=== PATIENT | male | born 1955 | race Caucasian/White ===

== ENCOUNTER 2019-04-06 09:37 | Day surgery (SDC) | payer BC ==
[2019-04-06] VITALS (9 sets, daily range): BP systolic 112–126; BP diastolic 68–82
[~2019-04-06] VITALS: Ht 162.6 cm; Wt 65.8 kg
[~2019-04-06 09:37] MED LIST: FISH OIL + D31 EACH PO; FOLIC ACID1 MG ORAL; LR 1000ml 1,000 ML IVLG SCH; MULTIVITAMINS1 EAC2 ORAL; PURINETHOL50 MG ORAL; TRICOR54 MG ORAL; vit b complex PO; vit d PO; zinc PO
[2019-04-06] MEDS ORDERED: INDAPAMIDE1.25 MG PO (10:19)
[2019-04-06] MEDS ORDERED: ASPIR 8181 MG ORAL (10:19)
[2019-04-06] MEDS ORDERED: MERCAPTOPURINE50 MG PO (10:19)
[2019-04-06] MEDS ORDERED: LIPITOR40 MG ORAL (10:20)
[2019-04-06] MEDS ORDERED: LR 1000ml 1,000 ML IVLG SCH (10:58)
[2019-04-06] MEDS ORDERED: Atropine Sulfate 0.4mg/ml inj IVP PRN (11:00)
[2019-04-06] MEDS ORDERED: Ketorolac 30mg Inj IV PRN ×2 (11:00)
[2019-04-06] MEDS ORDERED: DiphenhydrAMINE 50mg/ml Inj IVP PRN (11:00)
[2019-04-06] MEDS ORDERED: Metoclopramide 10mg/2ml Inj IVP PRN (11:00)
[2019-04-06] MEDS ORDERED: Meperidine 25mg/0.5ml Inj (FOR RIGORS ONLY) IV PRN (11:00)
[2019-04-06] MEDS ORDERED: Labetalol 5mg/ml 20ml vial IV PRN (11:00)
[2019-04-06] MEDS ORDERED: Midazolam 2mg/2ml Inj IVP PRN (11:00)
[2019-04-06] MEDS ORDERED: LORazepam Inj 2mg/ml 1ml IV PRN (11:00)
[2019-04-06] MEDS ORDERED: fentaNYL 100 mcg/2 mL IV PRN (11:00)
--- NOTE | 2019-04-06 11:00 | Anethesia Preoperative Eval ---
Anesthesia Pre-op PMH/ROS General Date of Evaluation: Apr 06, 2019 Time of Evaluation: 11:20 Anesthesiologist: Sher ASA Score: ASA 3 Mallampati Score Class I : Soft palate, uvula, fauces, pillars visible Class II: Soft palate, uvula, fauces visible Class III: Soft palate, base of uvula visible Class IV: Only hard plate visible Mallampati Classification: Class II Surgeon: Vincenzo Diagnosis: Abd Pain Surgical Procedure: Colonoscopy Family History: no anesthesia problems Allergies: Coded Allergies: CODEINE (Unverified Adverse Reaction, Severe, severe nausea, 04/06/19) Medications: see eMAR Patient NPO?: Yes Past Medical History Cardiovascular: Reports: HTN, other - HL Gastrointestinal/Genitourinary: Reports: GERD, other - Crohns, BPH Musculoskeletal/Integumentary: Reports: OA PSxH Narrative: [facility] Anesthesia Pre-op Phys. Exam Physician Exam Last Vital Signs Date Time Temp Pulse Resp B/P (MAP) Pulse Ox O2 Delivery O2 Flow Rate FiO2 04/06/19 10:21 Room Air 04/06/19 10:10 97.3 61 18 120/78 98 Constitutional: NAD Neurologic: CN 2-12 intact Cardiovascular: RRR Respiratory: CTA Gastrointestinal: S/NT/ND Airway Exam Mallampati Score: Class II MO: full ROM: limited Teeth: missing, intact Anesthesia Pre-op A/P Risk Assessment & Plan Assessment: ASA 3 Plan: GA Status Change Before Surgery: Lucas Vines MD Apr 06, 2019 11:00
--- NOTE | 2019-04-06 11:24 | Short Stay Surgery H&P ---
History of Present Illness History of Present Illness Chief Complaint see H&P attached HPI Melissa Tobias is a 63 year old male who was admitted on for Crohns Patient History Allergies: Coded Allergies: CODEINE (Unverified Adverse Reaction, Severe, severe nausea, 04/06/19) Relevant Family History: IBD Medication History Scheduled Aspirin* (Aspir 81*), 81 MG ORAL DAILY, (Reported) Atorvastatin Calcium* (Lipitor*), 40 MG ORAL BEDTIME, (Reported) Fenofibrate (Fenofibrate), 48 MG ORAL DAILY, (Reported) Indapamide (Indapamide), 1.25 MG PO DAILY, (Reported) Mercaptopurine (Mercaptopurine), 50 MG PO DAILY, (Reported) Discontinued Medications Folic Acid* (Folic Acid*), 1 MG ORAL DAILY, (Reported) Discontinued Reason: Pt stopped taking med Multivitamins* (Multivitamins*), 1 TAB ORAL DAILY, (Reported) Discontinued Reason: Pt stopped taking med [place]-3S/Dha/Epa/Fish Oil/D3 (Fish Oil + D3 Softgel), 1 EACH PO DAILY, (Reported ) Discontinued Reason: Pt stopped taking med [vit b complex], 1 TAB-CAP PO DAILY, (Reported) Discontinued Reason: Pt stopped taking med [vit d], 2,000 PO DAILY, (Reported) Discontinued Reason: Pt stopped taking med [zinc], 1 TAB PO DAILY, (Reported) Discontinued Reason: Pt stopped taking med Physical Exam Vital Signs Last Vital Signs Date Time Temp Pulse Resp B/P (MAP) Pulse Ox O2 Delivery O2 Flow Rate FiO2 04/06/19 10:21 Room Air 04/06/19 10:10 97.3 61 18 120/78 98 Plan Attestation Are the patient's medical conditions optimized for surgery? Kathleen Loya MD Apr 06, 2019 11:24
--- NOTE | 2019-04-06 11:25 | Pre-Procedure Note/Attestation ---
Pre-Procedure Note/Attestation Complete Prior to Procedure Planned Procedure: not applicable Procedure Narrative: colon Indications for Procedure Pre-Operative Diagnosis: Crohns Attestation I attest that I discussed the nature of the procedure; its benefits; risks and complications; and alternatives (and the risks and benefits of such alternatives ), prior to the procedure, with the patient (or the patient's legal sales development representative). I attest that, if there was a reasonable possibility of needing a blood transfusion, the patient (or the patient's legal sales development representative) was given the [facility] standardized written summary, pursuant to the [place] Blood Safety Act ([place] Health and Safety Code # 1645, as amended). I attest that I re-evaluated the patient just prior to the surgery and that there has been no change in the patient's H&P, except as documented below: Kathleen Loya MD Apr 06, 2019 11:25
[2019-04-06] MEDS ORDERED: LR 1000ml ONE (11:30)
[2019-04-06] MEDS ORDERED: Lidocaine 1% MPF 10mg/ml 5ml ONE (11:30)
[2019-04-06] MEDS ORDERED: Propofol 200mg/20ml IV ONE (11:30)
--- NOTE | 2019-04-06 11:41 | Immediate Post-Op Evaluation ---
Immediate Post-Op Evalulation Immediate Post-Op Evalulation Procedure: Colonoscopy Date of Evaluation: Apr 06, 2019 Time of Evaluation: 12:38 IV Fluids: 800 LR Blood Products: 0 Estimated Blood Loss: 2 Urinary Output: 0 Blood Pressure Systolic: 109 Blood Pressure Diastolic: 78 Pulse Rate: 75 Respiratory Rate: 16 O2 Sat by Pulse Oximetry: 100 Temperature (Fahrenheit): 97.5 Pain Score (1-10): 1 Nausea: No Vomiting: No Complications 0 Patient Status: awake, reacts, patent, none Hydration Status: adequate Lucas Olivarez MD Apr 06, 2019 11:41
--- NOTE | 2019-04-06 11:41 | 48 Hour Post Anesthesia Eval ---
Post Anesthesia Evaluation Procedure: Colonoscopy Date of Evaluation: Apr 06, 2019 Time of Evaluation: 14:43 Blood Pressure Systolic: 132 0: 72 Pulse Rate: 76 Respiratory Rate: 18 Temperature (Fahrenheit): 98.2 O2 Sat by Pulse Oximetry: 100 Airway: patent Nausea: No Vomiting: No Pain Intensity: 1 Hydration Status: adequate Cardiopulmonary Status: Stable Mental Status/LOC: patient returned to baseline Follow-up Care/Observations: 0 Post-Anesthesia Complications: 0 Follow-up care needed: ready to discharge Lucas Olivarez MD Apr 06, 2019 11:41
--- NOTE | 2019-04-06 23:00 | Operative Note - Dictated ---
DATE OF OPERATION: 04/06/2019 GASTROENTEROLOGY PROCEDURE PROCEDURE: Colonoscopy with biopsy. SURGEON: Kathleen Loya M.D. ANESTHESIA: Please see the separate anesthesiologist notes for details. PRE-ENDOSCOPIC DIAGNOSIS: History of Crohn's disease with Crohn's colitis. POST-ENDOSCOPIC DIAGNOSES: 1. Normal terminal ileum to about 15 centimeters with no evidence of ulcerations or inflammation. 2. Numerous colonic pseudopolyps of small, medium and long sizes throughout the colon status post random biopsies of several of these from the left colon in one bottle. 3. Status post random biopsies at every centimeters from the ascending colon, transverse colon, descending colon, and rectosigmoid colon. DESCRIPTION OF PROCEDURE: The procedure, its risks, indications, alternatives, and possible complications including but not limited to bleeding, infection, perforation, , and anesthesia complications were explained to the patient and informed consent was obtained. The patient was then sedated in the left lateral decubitus position and a rectal exam was done, which was unremarkable. The colonoscope was introduced in the rectum and advanced to the terminal ileum without difficulty. The terminal ileum was intubated for about 15 cm, which was normal without any evidence of ulcerations or inflammation. The colonic mucosa was noted to have numerous colonic pseudopolyps of small, medium, and long sizes. The polyps were all typical for pseudopolyps which were smooth, worm-like and without any unusual mucosal characteristics. A number of these in the left colon were biopsied and sent in one bottle for review. The colonic mucosa itself did not show any evidence of inflammatory changes, but random biopsies at every 10 cm was sent from the ascending colon, transverse colon, descending colon, and rectosigmoid colon and sent to pathology for review. Mild diverticulosis were was also seen in the left colon. All specimens were submitted to pathology for review. Retroflex view the rectum was unremarkable. The colonoscope was removed. The patient was sent to recovery in good condition. COMPLICATIONS: None. ASSESSMENT: This examination was notable for multiple pseudopolyps which is indicative of old activity. However, no active colitis was identified. Biopsies will be evaluated to rule out evidence of dysplasia microscopically. The patient will be seen in follow-up as an outpatient. RECOMMENDATIONS: 1. Resume current medications. 2. Follow up biopsy results. 3. Outpatient followup. Kathleen Loya M.D. DR: Gulshan JOB#: [id number] CC:
--- NOTE | 2019-04-07 14:09 | Endoscopy Procedure Note ---
Endoscopy Procedure Note General Indication for Procedure: CD Procedures Performed: colonoscopy Operative Findings/Diagnosis: pseudopolyps, tics Specimen: yes Pt Tolerated Procedure Well: Yes Estimated Blood Loss: none Anesthesia Anesthesiologist: see report Anesthesia: MAC Inserted Devices Implant(s) used?: No GI Core Measures 50 yrs or older w/o bx or poly: Not Applicable 10yrs. F/U recommended: Not Applicable Kathleen Loya MD Apr 07, 2019 14:09
--- NOTE | 2019-04-07 14:10 | Brief Operative Note ---
Immediate Post Operative Note Operative Note Chief Complaint: CD Pre-op Diagnosis: Crohns Post-op Diagnosis: pseudopolyps, tics Specimen: yes Complications: none Condition: stable Fluids: recorded Implant(s) used?: No Kathleen Loya MD Apr 07, 2019 14:10
== END 2019-04-06 14:00 | disposition home or self-care (01) ==
LOC: GAS 09:37
DX: K50.90 Crohn's disease, unspecified, without complications (principal); K63.5 Polyp of colon; K57.90 Diverticulosis of intestine, part unspecified, without perforation or abscess without bleeding; Z88.6 Allergy status to analgesic agent; Z79.82 Long term (current) use of aspirin; Z79.899 Other long term (current) drug therapy; I10 Essential (primary) hypertension; K21.9 Gastro-esophageal reflux disease without esophagitis; M19.90 Unspecified osteoarthritis, unspecified site
CPT/HCPCS: 45380; J2250; J2704; J7120; 94003; 94150